=== PATIENT | male | born 1950 | race Caucasian/White ===

== ENCOUNTER 2016-02-22 03:46 | Inpatient (IN) | payer OTHER ==
[~2016-02-22] VITALS: Ht 190.5 cm; Wt 107.5 kg
[~2016-02-22 03:46] MED LIST: ADVAIR HFA120 INHALA IH; ALDACTONE25 MG PO; AMIODARONE HCL200 MG PO; AMMONIUM LACTA224 GM TP; ANCEF,KEFZOL1 GM IM; BUMETANIDE1 MG PO; CALCIUM CARB1 TABLET PO; CARDIZEM CD120 M1 PO; CARVEDILOL6.25 MG PO; COUMADIN1 MG PO; COUMADIN10 MG PO; CYCLOGYL 140 DROP/2 LEFT EYE; Chronulac,Cephulac,E PO; DAILY VALUE1 EACH PO; DIGITEK250 MC2 PO; DIGOXIN125 MCG PO; DIGOXIN250 MCG PO; DOXAZOSIN MESYLA1 MG PO; DUONEB 2.5-0.5 M3 ML AEROSOL; ERGOCALCIF50000 UNIT PO; FLONASE16 G1 BOTH NARES; FLUNISOLIDE25 ML BOTH NARES; FOLIC ACID1 MG PO; FUROSEMIDE40 MG PO; HYDROCODON-ACE1 EAC7 PO; HYDROXYZINE PAM25 MG PO; JANTOVEN4 MG PO; KLOR-CON M1010 MEQ PO; KLOR-CON M2020 MEQ PO; LASIX100 MG/10 ML IV; LASIX40 MG PO; LIPITOR20 MG PO; LISINOPRIL2.5 MG PO; LO-DOSE ASPIRIN81 M1 PO; LOPRESSOR25 MG PO; LOPRESSOR50 MG PO; LOSARTAN POTASS25 MG PO; LOVENOX60 MG/0.6 SC; Lasix PO; MAG-OXIDE400 MG PO; MYDRIACYL15 ML LEFT EYE; OMEPRAZOLE20 MG PO; OXYCODONE HCL5 MG PO; PANTOPRAZOLE SO40 MG PO; PERCOCET 5/31 TABLET PO; PHENYLEPHRINE HC LEFT EYE; PRAZOSIN HCL1 MG PO; PREDNISONE20 MG PO; PROAIR RESPICL90 MCG IH; PROTONIX40 MG PO; PROVENTIL HFA6.7 GM IH; Protonix PO; SALINE FLUSH 5 M5 ML IV; SERTRALINE HCL50 MG PO; SPIRIVA1 INHALATI IH; SYMBICORT60 INHALAT IH; THERAGRAN1 TABLET PO; TYLENOL REGULA325 MG PO; VANCOMYCIN1.25 GM/25 IV; VITAMIN D-32000 UNI2 PO; WARFARIN SODIUM5 MG PO; XIFAXAN550 MG GT; ZESTRIL5 MG PO; Zestril,Prinivil PO; oxyCODONE PO
[2016-02-22 04:22] LABS: HEMATOCRIT 33.1 % (38.0-50.0); MCH 27.5 PG (29.0-34.0); MCHC 31.1 G/DL (30.0-36.0); MCV 88.3 FL (86-99); MEAN PLAT.VOLUME 9.5 uM^3 (9.0-12.4); PLATELET COUNT 196 K/uL (156-360); RBC DIS.WIDTH-CV 18.7 % (11.8-14.6); RBC DIS.WIDTH-SD 57.1 % (39-53); RED BLOOD COUNT 3.75 M/uL (4.00-5.50); WHITE BLOOD COUNT 8.3 K/uL (4.1-10.2)
[2016-02-22 04:24] LABS: EOSINOPHIL (%) 0.7 % (0-5); EOSINOPHIL COUNT 0.1 K/uL (0-0.3); IMMATURE GRANULOCYTE (%) 0.4 % (0.0-0.7); IMMATURE GRANULOCYTE COUNT 0.3 K/uL; LYMPHOCYTE COUNT 0.9 K/uL (1.0-2.8); MONOCYTE (%) 7.6 % (3-12); MONOCYTE COUNT 0.6 K/uL (0-0.8); NEUTROPHIL (%) 80.6 % (45-76); NEUTROPHIL COUNT 6.7 K/uL (1.8-6.4)
[2016-02-22 04:32] LABS: INTER. NORMALIZED RATIO 1.3; PROTHROMBIN TIME 13.1 (9.2-11.2); PTT 29.4 (25-32)
[2016-02-22 04:33] LABS: CHLORIDE 96 mEq/L (99-109); POTASSIUM 4.2 mEq/L (3.7-5.4); SODIUM 140 mEq/L (136-147)
[2016-02-22 04:35] LABS: GLUCOSE 98 mg/dL (70-99)
[2016-02-22 04:36] LABS: ANION GAP 11 MEQ/L (2-14)
[2016-02-22 04:37] LABS: TOTAL BILIRUBIN 1.8 mg/dL (0.0-1.0)
[2016-02-22 04:39] LABS: ALKALINE PHOSPHATASE 292 IU/L (3-129); GFR ESTIMATE (CALCULATED) > 59 mL/min/
[2016-02-22 04:40] LABS: UREA NITROGEN (BUN) 11 mg/dL (9-23)
[2016-02-22 04:44] LABS: TROP-I INTERPRETATION NEGATIVE; TROPONIN-I 0.02 ng/mL (0.0-0.30)
[2016-02-22] MEDS ORDERED: MAGNESIUM400 M1 PO (04:50)
[2016-02-22] MEDS ORDERED: MULTIVITAMIN1 EAC2 PO (04:51)
[2016-02-22 10:59] LABS: TROP-I INTERPRETATION NEGATIVE; TROPONIN-I 0.02 ng/mL (0.0-0.30)
[2016-02-22 16:00] VITALS: BP 110/71
[2016-02-22 16:09] VITALS: BP 110/71
[2016-02-22 17:17] LABS: TROP-I INTERPRETATION NEGATIVE; TROPONIN-I 0.02 ng/mL (0.0-0.30)
[2016-02-22 19:15] VITALS: BP 100/58
[2016-02-22 23:50] VITALS: BP 115/72
[2016-02-23 04:30] VITALS: BP 112/63
[2016-02-23 07:08] LABS: HEMATOCRIT 31.8 % (38.0-50.0); MCH 27.8 PG (29.0-34.0); MCHC 31.1 G/DL (30.0-36.0); MCV 89.3 FL (86-99); MEAN PLAT.VOLUME 10.2 uM^3 (9.0-12.4); PLATELET COUNT 168 K/uL (156-360); RBC DIS.WIDTH-CV 19.2 % (11.8-14.6); RBC DIS.WIDTH-SD 60.1 % (39-53); RED BLOOD COUNT 3.56 M/uL (4.00-5.50); WHITE BLOOD COUNT 7.5 K/uL (4.1-10.2)
[2016-02-23 07:47] LABS: ALKALINE PHOSPHATASE 258 IU/L (3-129); ANION GAP 10 MEQ/L (2-14); CHLORIDE 91 MEQ/L (99-109); GFR ESTIMATE (CALCULATED) > 59 mL/min/; GLUCOSE 128 mg/dL (70-99); POTASSIUM 3.9 MEQ/L (3.7-5.4); SAMPLE HEMOLYSIS CHECK 0; SAMPLE ICTERIC CHECK 0; SAMPLE LIPEMIA CHECK 0; SODIUM 141 MEQ/L (136-147); TOTAL BILIRUBIN 1.7 MG/DL (0.0-1.0); UREA NITROGEN (BUN) 12 mg/dL (9-23)
[2016-02-23 09:13] VITALS: BP 103/60
[2016-02-23 11:54] VITALS: BP 110/65
[2016-02-23 16:44] VITALS: BP 106/64
[2016-02-23 19:18] VITALS: BP 111/60
[2016-02-23 23:09] VITALS: BP 110/64
[2016-02-24 03:18] VITALS: BP 113/65
[2016-02-24 07:15] VITALS: BP 108/68
[2016-02-24 11:00] VITALS: BP 105/62
[2016-02-24 11:30] VITALS: BP 105/70
[2016-02-24 15:34] VITALS: BP 95/53
[2016-02-24 20:10] VITALS: BP 105/57
[2016-02-25 00:10] VITALS: BP 106/72
[2016-02-25 04:06] VITALS: BP 100/68
[2016-02-25 07:56] VITALS: BP 110/62
[2016-02-25 09:11] LABS: HEMATOCRIT 33.2 % (38.0-50.0); MCH 27.7 PG (29.0-34.0); MCHC 30.4 G/DL (30.0-36.0); MCV 91.2 FL (86-99); MEAN PLAT.VOLUME 9.9 uM^3 (9.0-12.4); RBC DIS.WIDTH-CV 19.1 % (11.8-14.6); RBC DIS.WIDTH-SD 62.3 % (39-53); RED BLOOD COUNT 3.64 M/uL (4.00-5.50)
[2016-02-25 09:12] LABS: PLATELET COUNT 232 K/uL (156-360); WHITE BLOOD COUNT 3.8 K/uL (4.1-10.2)
[2016-02-25 09:30] LABS: ALKALINE PHOSPHATASE 246 IU/L (3-129); ANION GAP ND MEQ/L (2-14); CHLORIDE 86 MEQ/L (99-109); GFR ESTIMATE (CALCULATED) > 59 mL/min/; POTASSIUM 4.4 MEQ/L (3.7-5.4); SAMPLE HEMOLYSIS CHECK 0; SAMPLE ICTERIC CHECK 0; SAMPLE LIPEMIA CHECK 0; SODIUM 135 MEQ/L (136-147); UREA NITROGEN (BUN) 16 mg/dL (9-23)
[2016-02-25 09:32] LABS: CARBON DIOXIDE (BICARBONATE) > 40.0 MEQ/L (20-31); GLUCOSE 94 mg/dL (70-99)
[2016-02-25 11:32] VITALS: BP 100/66
[2016-02-25 15:39] VITALS: BP 100/58
[2016-02-25 19:15] VITALS: BP 93/59
[2016-02-26 00:10] VITALS: BP 106/57
[2016-02-26 04:00] VITALS: BP 98/53
[2016-02-26 06:47] LABS: HEMATOCRIT 32.1 % (38.0-50.0); MCH 27.8 PG (29.0-34.0); MCHC 30.5 G/DL (30.0-36.0); MCV 90.9 FL (86-99); MEAN PLAT.VOLUME 10.3 uM^3 (9.0-12.4); PLATELET COUNT 232 K/uL (156-360); RBC DIS.WIDTH-CV 19.3 % (11.8-14.6); RBC DIS.WIDTH-SD 62.8 % (39-53); RED BLOOD COUNT 3.53 M/uL (4.00-5.50); WHITE BLOOD COUNT 3.8 K/uL (4.1-10.2)
[2016-02-26 07:00] LABS: EOSINOPHIL (%) 4.5 % (0-5); EOSINOPHIL COUNT 0.2 K/uL (0-0.3); IMMATURE GRANULOCYTE (%) 0.5 % (0.0-0.7); MONOCYTE (%) 11.2 % (3-12); MONOCYTE COUNT 0.4 K/uL (0-0.8); NEUTROPHIL (%) 56.4 % (45-76); NEUTROPHIL COUNT 2.1 K/uL (1.8-6.4)
[2016-02-26 07:42] LABS: ANION GAP ND MEQ/L (2-14); CHLORIDE 89 MEQ/L (99-109); GFR ESTIMATE (CALCULATED) > 59 mL/min/; GLUCOSE 86 mg/dL (70-99); POTASSIUM 4.6 MEQ/L (3.7-5.4); SAMPLE HEMOLYSIS CHECK 0; SAMPLE ICTERIC CHECK 0; SAMPLE LIPEMIA CHECK 0; SODIUM 138 MEQ/L (136-147); UREA NITROGEN (BUN) 16 mg/dL (9-23)
[2016-02-26 07:52] LABS: CARBON DIOXIDE (BICARBONATE) > 40.0 MEQ/L (20-31)
[2016-02-26 08:44] VITALS: BP 101/63
[2016-02-26] MEDS ORDERED: XARELTO20 MG PO (12:09)
[2016-02-26] MEDS ORDERED: PRAVASTATIN SOD40 MG PO (12:09)
[2016-02-26] MEDS ORDERED: CARDIZEM CD120 MG PO (12:09)
[2016-02-26] MEDS ORDERED: SPIRONOLACTONE25 MG PO (12:09)
[2016-02-26] MEDS ORDERED: VENTOLIN HFA18 GM IH ×2 (12:09→13:18)
[2016-02-26] MEDS ORDERED: SPIRIVA RESPIMAT4 GM IH (12:09)
[2016-02-26] MEDS ORDERED: LIDOCAINE700 MG TD (12:09)
[2016-02-26] MEDS ORDERED: ADVAIR HFA120 INHALA IH (12:09)
[2016-02-26] MEDS ORDERED: FLONASE16 G1 BOTH NARES (12:09)
[2016-02-26] MEDS ORDERED: FUROSEMIDE40 MG PO (12:09)
[2016-02-26] MEDS ORDERED: TRAMADOL HCL50 MG PO (12:09)
[2016-02-26] MEDS ORDERED: SYMBICORT60 INHALAT IH (13:18)
[2016-02-26] MEDS ORDERED: ERGOCALCIF50000 UNIT PO (13:18)
[2016-02-26] MEDS ORDERED: MAGNESIUM400 M1 PO (13:19)
== END 2016-02-26 15:54 | disposition home or self-care (01) | DRG 291 ==
LOC: EME → EDBD 03:46 → EME 03:46 → 4EAST 05:50 → EDOF 05:50 → 4EAST 15:47
PROVIDERS: Emergency Medicine; Family Medicine; Hospitalist
DX: I13.0 Hypertensive heart and chronic kidney disease with heart failure and stage 1 through stage 4 chronic kidney disease, or unspecified chronic kidney disease (principal); I50.33 Acute on chronic diastolic (congestive) heart failure; J96.10 Chronic respiratory failure, unspecified whether with hypoxia or hypercapnia; J98.11 Atelectasis; I44.7 Left bundle-branch block, unspecified; J44.9 Chronic obstructive pulmonary disease, unspecified; I27.2 Other secondary pulmonary hypertension; F10.20 Alcohol dependence, uncomplicated; E78.5 Hyperlipidemia, unspecified; E66.9 Obesity, unspecified; M71.22 Synovial cyst of popliteal space [Baker], left knee; Z68.33 Body mass index [BMI] 33.0-33.9, adult; M19.90 Unspecified osteoarthritis, unspecified site; I48.91 Unspecified atrial fibrillation; Z99.81 Dependence on supplemental oxygen; K21.9 Gastro-esophageal reflux disease without esophagitis; N18.9 Chronic kidney disease, unspecified; G47.33 Obstructive sleep apnea (adult) (pediatric); I34.0 Nonrheumatic mitral (valve) insufficiency
CPT/HCPCS: 71010; 71020; 80048; 80053; 83880; 84443; 84484; 85025; 85027; 85610; 85730; 93005; 93970; 94010; 94640; 94640 76; 94799; 99202; 99281; 99285; J1650; J1940; J3010

== ENCOUNTER 2016-02-27 10:43 | Observation (INO) | payer OTHER ==
[~2016-02-27] VITALS: Ht 190.5 cm; Wt 109.8 kg
[~2016-02-27 10:43] MED LIST changes: +CARDIZEM CD120 MG PO; +LIDOCAINE700 MG TD; +MAGNESIUM400 M1 PO; +MULTIVITAMIN1 EAC2 PO; +PRAVASTATIN SOD40 MG PO; +SPIRIVA RESPIMAT4 GM IH; +SPIRONOLACTONE25 MG PO; +TRAMADOL HCL50 MG PO; +VENTOLIN HFA18 GM IH; +XARELTO20 MG PO
[2016-02-27 11:15] LABS: CHLORIDE 92 mEq/L (99-109); POTASSIUM 4.2 mEq/L (3.7-5.4); SODIUM 135 mEq/L (136-147)
[2016-02-27 11:16] LABS: GLUCOSE 94 mg/dL (70-99)
[2016-02-27 11:18] LABS: ANION GAP 7 MEQ/L (2-14)
[2016-02-27 11:20] LABS: GFR ESTIMATE (CALCULATED) > 59 mL/min/
[2016-02-27 11:21] LABS: UREA NITROGEN (BUN) 15 mg/dL (9-23)
[2016-02-27 11:27] LABS: TROP-I INTERPRETATION NEGATIVE; TROPONIN-I 0.03 ng/mL (0.0-0.30)
[2016-02-27 11:39] LABS: INTER. NORMALIZED RATIO 1.2
[2016-02-27 11:40] LABS: MEAN PLAT.VOLUME 11.7 uM^3 (9.0-12.4); PLATELET COUNT 214 K/uL (156-360)
[2016-02-27 13:55] LABS: HEMATOLOGY COMMENT 1 SMEAR COMPATIBLE
[2016-02-27 13:56] LABS: HEMATOCRIT 33.8 % (38.0-50.0); MCH 28.2 PG (29.0-34.0); MCHC 32.2 G/DL (30.0-36.0); MCV 87.6 FL (86-99); RBC DIS.WIDTH-SD 62.4 % (39-53); RED BLOOD COUNT 3.86 M/uL (4.00-5.50); WHITE BLOOD COUNT 4.2 K/uL (4.1-10.2)
[2016-02-27 17:25] VITALS: BP 132/82
[2016-02-27 18:03] LABS: D-DIMER ELISA 0.69 mg/L FEU (< 0.57)
[2016-02-27 18:10] LABS: TROP-I INTERPRETATION NEGATIVE; TROPONIN-I 0.03 ng/mL (0.0-0.30)
[2016-02-27 20:28] VITALS: BP 121/73
[2016-02-27 23:42] VITALS: BP 105/56
[2016-02-27 23:48] LABS: TROP-I INTERPRETATION NEGATIVE; TROPONIN-I 0.03 ng/mL (0.0-0.30)
[2016-02-28 04:13] VITALS: BP 122/69
[2016-02-28 06:10] LABS: HEMATOCRIT 34.3 % (38.0-50.0); INTER. NORMALIZED RATIO 1.3; MCH 28.1 PG (29.0-34.0); MCHC 31.5 G/DL (30.0-36.0); MCV 89.1 FL (86-99); MEAN PLAT.VOLUME 11.2 uM^3 (9.0-12.4); PLATELET COUNT 246 K/uL (156-360); PROTHROMBIN TIME 13.4 (9.2-11.2); RBC DIS.WIDTH-CV 19.9 % (11.8-14.6); RBC DIS.WIDTH-SD 63.6 % (39-53); RED BLOOD COUNT 3.85 M/uL (4.00-5.50)
[2016-02-28 06:11] LABS: WHITE BLOOD COUNT 5.6 K/uL (4.1-10.2)
[2016-02-28 06:27] LABS: ANION GAP 6 MEQ/L (2-14); CHLORIDE 92 MEQ/L (99-109); GFR ESTIMATE (CALCULATED) > 59 mL/min/; GLUCOSE 91 mg/dL (70-99); POTASSIUM 5.1 MEQ/L (3.7-5.4); SAMPLE HEMOLYSIS CHECK 2; SAMPLE ICTERIC CHECK 0; SAMPLE LIPEMIA CHECK 0; SODIUM 136 MEQ/L (136-147); UREA NITROGEN (BUN) 20 mg/dL (9-23)
[2016-02-28 07:32] VITALS: BP 92/51
[2016-02-28 09:08] LABS: POTASSIUM 4.3 MEQ/L (3.7-5.4)
[2016-02-28] MEDS ORDERED: XARELTO20 MG PO (09:43)
[2016-02-28] MEDS ORDERED: PRAVACHOL40 MG PO (09:44)
[2016-02-28] MEDS ORDERED: VENTOLIN HFA18 GM IH (09:44)
[2016-02-28] MEDS ORDERED: SPIRIVA RESPIMAT4 GM IH (09:44)
[2016-02-28] MEDS ORDERED: CARDIZEM CD,CA120 MG PO (09:45)
[2016-02-28] MEDS ORDERED: ALDACTONE25 MG PO (09:45)
[2016-02-28] MEDS ORDERED: TRAMADOL HCL50 MG PO (09:46)
[2016-02-28] MEDS ORDERED: FUROSEMIDE40 MG PO (09:46)
[2016-02-28] MEDS ORDERED: ADVAIR HFA120 INHALA IH (09:47)
[2016-02-28] MEDS ORDERED: FLONASE16 G1 BOTH NARES ×2 (09:47→09:48)
[2016-02-28] MEDS ORDERED: LIDODERM 5% P1 PATCH TD (09:48)
[2016-02-28 12:22] VITALS: BP 122/74
[2016-02-28 15:41] VITALS: BP 115/56
== END 2016-02-28 18:36 | disposition home or self-care (01) ==
LOC: EME 10:43 → EDOF 16:30 → 5WEST 16:30
PROVIDERS: Emergency Medicine; Internal Medicine; Physician Assistant
DX: R07.89 Other chest pain (principal); I10 Essential (primary) hypertension; I48.1 Persistent atrial fibrillation; E78.5 Hyperlipidemia, unspecified; G47.33 Obstructive sleep apnea (adult) (pediatric); Z79.01 Long term (current) use of anticoagulants; I44.7 Left bundle-branch block, unspecified; E66.9 Obesity, unspecified; Z68.30 Body mass index [BMI] 30.0-30.9, adult; Z98.84 Bariatric surgery status; J44.9 Chronic obstructive pulmonary disease, unspecified; I27.81 Cor pulmonale (chronic); Z99.81 Dependence on supplemental oxygen; K21.9 Gastro-esophageal reflux disease without esophagitis; I31.1 Chronic constrictive pericarditis; G89.4 Chronic pain syndrome; R26.9 Unspecified abnormalities of gait and mobility; M25.562 Pain in left knee; Z87.891 Personal history of nicotine dependence; Z87.898 Personal history of other specified conditions
CPT/HCPCS: 71010; 71020; 71275; 80048; 81003; 83880; 84484; 84999; 85027; 85379; 85610; 93005; 99281; 99284; G0378; J1940

== ENCOUNTER 2016-03-11 11:00 | Inpatient (IN) | payer OTHER ==
[~2016-03-11] VITALS: Ht 190.5 cm; Wt 116.8 kg
[~2016-03-11 11:00] MED LIST changes: +CARDIZEM CD,CA120 MG PO; +LIDODERM 5% P1 PATCH TD; +PRAVACHOL40 MG PO
[2016-03-11 11:51] LABS: ADD MIUA? NO; BILIRUBIN NEGATIVE; BLOOD NEGATIVE; COLOR YELLOW ((YELLOW)); GLUCOSE (STRIP) NEGATIVE; KETONES NEGATIVE; LEUKOCYTES NEGATIVE; NITRITE NEGATIVE; PROTEIN (STRIP) NEGATIVE; UCUL ADDED? NO
[2016-03-11 12:56] LABS: HEMATOCRIT 29.7 % (38.0-50.0); MCH 28.9 PG (29.0-34.0); MCV 93.4 FL (86-99); MEAN PLAT.VOLUME 9.2 uM^3 (9.0-12.4); PLATELET COUNT 236 K/uL (156-360); RBC DIS.WIDTH-CV 21.1 % (11.8-14.6); RBC DIS.WIDTH-SD 68.8 % (39-53); RED BLOOD COUNT 3.18 M/uL (4.00-5.50); WHITE BLOOD COUNT 3.3 K/uL (4.1-10.2)
[2016-03-11 13:02] LABS: CHLORIDE 97 mEq/L (99-109); POTASSIUM 4.9 mEq/L (3.7-5.4); SODIUM 138 mEq/L (136-147)
[2016-03-11 13:05] LABS: GLUCOSE 87 mg/dL (70-99)
[2016-03-11 13:06] LABS: ANION GAP 11 MEQ/L (2-14)
[2016-03-11 13:07] LABS: TOTAL BILIRUBIN 0.6 mg/dL (0.0-1.0)
[2016-03-11 13:08] LABS: ALKALINE PHOSPHATASE 254 IU/L (3-129); GFR ESTIMATE (CALCULATED) > 59 mL/min/
[2016-03-11 13:09] LABS: UREA NITROGEN (BUN) 8 mg/dL (9-23)
[2016-03-11 13:14] LABS: TROP-I INTERPRETATION NEGATIVE; TROPONIN-I 0.02 ng/mL (0.0-0.30)
[2016-03-11 15:15] LABS: INTER. NORMALIZED RATIO 1.1; PROTHROMBIN TIME 11.4 (9.2-11.2); PTT 28.7 (25-32)
[2016-03-11 18:30] VITALS: BP 121/69
[2016-03-11 20:46] LABS: HEMATOCRIT 30.3 % (38.0-50.0); MCV 92.4 FL (86-99)
[2016-03-11 21:10] LABS: TROP-I INTERPRETATION NEGATIVE; TROPONIN-I 0.03 ng/mL (0.0-0.30)
[2016-03-11 22:46] LABS: AMYLASE 40 IU/L (1-118)
[2016-03-11 23:19] VITALS: BP 123/65
[2016-03-11 23:40] LABS: MCH 28.6 PG (29.0-34.0); MCHC 30.7 G/DL (30.0-36.0); MEAN PLAT.VOLUME 9.8 uM^3 (9.0-12.4); PLATELET COUNT 217 K/uL (156-360); RBC DIS.WIDTH-SD 70.9 % (39-53); RED BLOOD COUNT 3.25 M/uL (4.00-5.50); WHITE BLOOD COUNT 4.7 K/uL (4.1-10.2)
[2016-03-11 23:58] LABS: IRON 19 MCG/DL (35-150); SERUM ETHYL ALCOHOL < 10 mg/dL
[2016-03-12 07:16] LABS: INTER. NORMALIZED RATIO 1.2; PROTHROMBIN TIME 11.8 (9.2-11.2); PTT 28.4 (25-32)
[2016-03-12 07:31] LABS: ALKALINE PHOSPHATASE 231 IU/L (3-129); ANION GAP 4 MEQ/L (2-14); CHLORIDE 98 MEQ/L (99-109); DIRECT BILIRUBIN 0.4 mg/dL (0.0-0.3); GFR ESTIMATE (CALCULATED) > 59 mL/min/; GLUCOSE 80 mg/dL (70-99); POTASSIUM 4.6 MEQ/L (3.7-5.4); SAMPLE HEMOLYSIS CHECK 0; SAMPLE ICTERIC CHECK 0; SAMPLE LIPEMIA CHECK 0; SODIUM 138 MEQ/L (136-147); TOTAL BILIRUBIN 1.1 MG/DL (0.0-1.0); UREA NITROGEN (BUN) 9 mg/dL (9-23)
[2016-03-12 07:57] VITALS: BP 130/80
[2016-03-12 10:34] LABS: HEMATOCRIT 29.9 % (38.0-50.0); MCH 28.8 PG (29.0-34.0); MCHC 30.4 G/DL (30.0-36.0); MCV 94.6 FL (86-99); PLATELET COUNT 214 K/uL (156-360); RBC DIS.WIDTH-CV 21.2 % (11.8-14.6); RBC DIS.WIDTH-SD 73.2 % (39-53); RED BLOOD COUNT 3.16 M/uL (4.00-5.50); WHITE BLOOD COUNT 4.6 K/uL (4.1-10.2)
[2016-03-12 16:05] VITALS: BP 126/73
[2016-03-12 23:23] LABS: HEMATOCRIT 29.5 % (38.0-50.0); MCH 28.8 PG (29.0-34.0); MCHC 30.8 G/DL (30.0-36.0); MCV 93.4 FL (86-99); MEAN PLAT.VOLUME 8.9 uM^3 (9.0-12.4); PLATELET COUNT 201 K/uL (156-360); RBC DIS.WIDTH-CV 20.5 % (11.8-14.6); RBC DIS.WIDTH-SD 67.5 % (39-53); RED BLOOD COUNT 3.16 M/uL (4.00-5.50); WHITE BLOOD COUNT 4.3 K/uL (4.1-10.2)
[2016-03-13 06:26] LABS: MCH 29.4 PG (29.0-34.0); MCHC 31.4 G/DL (30.0-36.0); MCV 93.5 FL (86-99); MEAN PLAT.VOLUME 9.9 uM^3 (9.0-12.4); PLATELET COUNT 190 K/uL (156-360); RBC DIS.WIDTH-CV 20.7 % (11.8-14.6); RBC DIS.WIDTH-SD 70.7 % (39-53); WHITE BLOOD COUNT 3.9 K/uL (4.1-10.2)
[2016-03-13 06:50] LABS: ANION GAP 6 MEQ/L (2-14); CHLORIDE 98 MEQ/L (99-109); GFR ESTIMATE (CALCULATED) > 59 mL/min/; GLUCOSE 84 mg/dL (70-99); POTASSIUM 3.9 MEQ/L (3.7-5.4); SAMPLE HEMOLYSIS CHECK 0; SAMPLE ICTERIC CHECK 0; SAMPLE LIPEMIA CHECK 0; SODIUM 139 MEQ/L (136-147); UREA NITROGEN (BUN) 9 mg/dL (9-23)
[2016-03-13 17:14] VITALS: BP 114/68
[2016-03-14 00:22] VITALS: BP 108/64
[2016-03-14 07:09] LABS: HEMATOCRIT 31.6 % (38.0-50.0); MCHC 30.7 G/DL (30.0-36.0); MCV 94.3 FL (86-99); MEAN PLAT.VOLUME 9.8 uM^3 (9.0-12.4); PLATELET COUNT 191 K/uL (156-360); RBC DIS.WIDTH-CV 20.4 % (11.8-14.6); RBC DIS.WIDTH-SD 70.3 % (39-53); RED BLOOD COUNT 3.35 M/uL (4.00-5.50); WHITE BLOOD COUNT 4.1 K/uL (4.1-10.2)
[2016-03-14 07:36] LABS: ANION GAP 4 MEQ/L (2-14); CHLORIDE 94 MEQ/L (99-109); GFR ESTIMATE (CALCULATED) > 59 mL/min/; GLUCOSE 84 mg/dL (70-99); SAMPLE HEMOLYSIS CHECK 0; SAMPLE ICTERIC CHECK 0; SAMPLE LIPEMIA CHECK 0; SODIUM 136 MEQ/L (136-147); UREA NITROGEN (BUN) 6 mg/dL (9-23)
[2016-03-14 09:00] VITALS: BP 128/57
[2016-03-14 18:31] VITALS: BP 114/70
[2016-03-14 20:30] VITALS: BP 113/67
[2016-03-14 23:15] VITALS: BP 101/63
[2016-03-15 04:10] VITALS: BP 101/58
[2016-03-15 07:38] VITALS: BP 110/57
[2016-03-15 16:20] VITALS: BP 116/57
[2016-03-15 23:13] VITALS: BP 105/67
[2016-03-16 06:45] LABS: HEMATOCRIT 28.6 % (38.0-50.0); MCH 28.5 PG (29.0-34.0); MCHC 29.7 G/DL (30.0-36.0); MEAN PLAT.VOLUME 10.1 uM^3 (9.0-12.4); PLATELET COUNT 158 K/uL (156-360); RBC DIS.WIDTH-CV 19.8 % (11.8-14.6); RBC DIS.WIDTH-SD 69.1 % (39-53); RED BLOOD COUNT 2.98 M/uL (4.00-5.50); WHITE BLOOD COUNT 4.2 K/uL (4.1-10.2)
[2016-03-16 07:13] LABS: ANION GAP 6 MEQ/L (2-14); CHLORIDE 95 MEQ/L (99-109); GFR ESTIMATE (CALCULATED) > 59 mL/min/; GLUCOSE 81 mg/dL (70-99); MAGNESIUM 1.3 mg/dl (1.3-2.7); POTASSIUM 3.8 MEQ/L (3.7-5.4); SAMPLE HEMOLYSIS CHECK 0; SAMPLE ICTERIC CHECK 0; SAMPLE LIPEMIA CHECK 0; SODIUM 139 MEQ/L (136-147); UREA NITROGEN (BUN) 8 mg/dL (9-23)
[2016-03-16 07:33] VITALS: BP 110/61
[2016-03-16] MEDS ORDERED: BENTYL20 MG PO (14:13)
[2016-03-16] MEDS ORDERED: LOPRESSOR25 MG PO (14:13)
[2016-03-16] MEDS ORDERED: PANTOPRAZOLE SO40 MG PO (14:13)
[2016-03-16] MEDS ORDERED: FUROSEMIDE40 MG PO (14:13)
[2016-03-16] MEDS ORDERED: PRAVASTATIN SOD40 MG PO (14:13)
[2016-03-16] MEDS ORDERED: SPIRIVA RESPIMAT4 GM IH (14:13)
[2016-03-16] MEDS ORDERED: ADVAIR HFA120 INHALA IH (14:13)
[2016-03-16] MEDS ORDERED: SPIRONOLACTONE25 MG PO (14:13)
[2016-03-16] MEDS ORDERED: CARDIZEM CD120 MG PO (14:13)
[2016-03-19 08:33] LABS: INTERNAL CONTROL VALID? YES
== END 2016-03-16 17:18 | disposition home or self-care (01) | DRG 378 ==
LOC: EME → EDBD 11:00 → EME 11:00 → EDOF 14:06 → 5EAST 14:20
PROVIDERS: Emergency Medicine; Hospitalist; Internal Medicine; Specialist
DX: K92.2 Gastrointestinal hemorrhage, unspecified (principal); I50.32 Chronic diastolic (congestive) heart failure; I42.6 Alcoholic cardiomyopathy; J44.9 Chronic obstructive pulmonary disease, unspecified; I11.0 Hypertensive heart disease with heart failure; I27.2 Other secondary pulmonary hypertension; F10.10 Alcohol abuse, uncomplicated; K70.30 Alcoholic cirrhosis of liver without ascites; E78.5 Hyperlipidemia, unspecified; I08.1 Rheumatic disorders of both mitral and tricuspid valves; E66.9 Obesity, unspecified; K31.7 Polyp of stomach and duodenum; Z68.32 Body mass index [BMI] 32.0-32.9, adult; R07.89 Other chest pain; I48.2 Chronic atrial fibrillation; G47.33 Obstructive sleep apnea (adult) (pediatric); I25.10 Atherosclerotic heart disease of native coronary artery without angina pectoris; Z91.19 Patient's noncompliance with other medical treatment and regimen; Z99.81 Dependence on supplemental oxygen; K64.8 Other hemorrhoids; K63.5 Polyp of colon; K57.30 Diverticulosis of large intestine without perforation or abscess without bleeding; K55.20 Angiodysplasia of colon without hemorrhage; D63.8 Anemia in other chronic diseases classified elsewhere
CPT/HCPCS: 71020; 74177; 76705; 80048; 80053; 80076; 81003; 82150; 82272; 82607; 82746; 83540; 83735; 84484; 85014; 85018; 85027; 85610; 85730; 86850; 86900; 86901; 86920; 87177; 87493; 87506; 88305; 88342 TC; 93005; 94640; 94640 76; 94760; 94799; 99202; 99281; 99285; C9113; G0480; J2250; J2270; J3010; J7030

== ENCOUNTER 2016-05-10 04:12 | Inpatient (IN) | payer OTHER ==
[~2016-05-10] VITALS: Ht 190.5 cm; Wt 116.9 kg
[~2016-05-10 04:12] MED LIST changes: +BENTYL20 MG PO
[2016-05-10 04:50] LABS: HEMATOCRIT 31.6 % (38.0-50.0); MCH 27.1 PG (29.0-34.0); MCHC 30.7 G/DL (30.0-36.0); MCV 88.3 FL (86-99); PLATELET COUNT 190 K/uL (156-360); RBC DIS.WIDTH-CV 19.4 % (11.8-14.6); RBC DIS.WIDTH-SD 61.6 % (39-53); RED BLOOD COUNT 3.58 M/uL (4.00-5.50); WHITE BLOOD COUNT 4.2 K/uL (4.1-10.2)
[2016-05-10 04:56] LABS: CHLORIDE 94 mEq/L (99-109); POTASSIUM 3.7 mEq/L (3.7-5.4); SODIUM 138 mEq/L (136-147)
[2016-05-10 04:58] LABS: GLUCOSE 90 mg/dL (70-99)
[2016-05-10 04:59] LABS: ANION GAP 12 MEQ/L (2-14)
[2016-05-10 05:01] LABS: GFR ESTIMATE (CALCULATED) > 59 mL/min/
[2016-05-10 05:02] LABS: UREA NITROGEN (BUN) 8 mg/dL (9-23)
[2016-05-10 05:10] LABS: TROP-I INTERPRETATION NEGATIVE; TROPONIN-I 0.04 ng/mL (0.0-0.30)
[2016-05-10 05:39] LABS: ADD MIUA? NO; BILIRUBIN NEGATIVE; BLOOD NEGATIVE; COLOR COLORLESS ((YELLOW)); GLUCOSE (STRIP) NEGATIVE; KETONES NEGATIVE; LEUKOCYTES NEGATIVE; NITRITE NEGATIVE; PROTEIN (STRIP) NEGATIVE; SPECIFIC GRAVITY 1.004 (1.000-1.030); UCUL ADDED? NO; UROBILINOGEN 0.2 MG/DL (0.2-1.0)
[2016-05-10 06:13] LABS: MONOCYTE (%) 11.3 % (3-12)
[2016-05-10 06:14] LABS: EOSINOPHIL (%) 2.1 % (0-5); EOSINOPHIL COUNT 0.1 K/uL (0-0.3); IMMATURE GRANULOCYTE (%) 0.7 % (0.0-0.7); LYMPHOCYTE COUNT 0.6 K/uL (1.0-2.8); MONOCYTE COUNT 0.5 K/uL (0-0.8)
[2016-05-10 06:19] LABS: INTER. NORMALIZED RATIO 1.4; PTT 34.8 (25-32)
[2016-05-10] MEDS ORDERED: KLOR-CON M2020 MEQ PO (11:25)
[2016-05-10] MEDS ORDERED: XARELTO20 MG PO (11:25)
[2016-05-10] MEDS ORDERED: VENTOLIN HFA18 GM IH (11:26)
[2016-05-10 15:00] VITALS: BP 130/88
[2016-05-10 19:34] VITALS: BP 130/77
[2016-05-10 23:43] VITALS: BP 116/69
[2016-05-11 04:11] VITALS: BP 109/72
[2016-05-11 05:45] LABS: MCH 27.3 PG (29.0-34.0); MCHC 30.7 G/DL (30.0-36.0); MCV 88.9 FL (86-99); MEAN PLAT.VOLUME 9.8 uM^3 (9.0-12.4); PLATELET COUNT 187 K/uL (156-360); RBC DIS.WIDTH-CV 19.9 % (11.8-14.6); RBC DIS.WIDTH-SD 63.1 % (39-53); RED BLOOD COUNT 3.15 M/uL (4.00-5.50)
[2016-05-11 05:46] LABS: WHITE BLOOD COUNT 6.9 K/uL (4.1-10.2)
[2016-05-11 05:47] LABS: METH RESISTANT S AUREUS PCR POSITIVE (NEGATIVE)
[2016-05-11 05:50] LABS: PROBE CHECK PASS
[2016-05-11 06:06] LABS: ANION GAP 8 MEQ/L (2-14); CHLORIDE 94 MEQ/L (99-109); GFR ESTIMATE (CALCULATED) > 59 mL/min/; GLUCOSE 96 mg/dL (70-99); POTASSIUM 4.6 MEQ/L (3.7-5.4); SAMPLE HEMOLYSIS CHECK 0; SAMPLE ICTERIC CHECK 0; SAMPLE LIPEMIA CHECK 0; SODIUM 137 MEQ/L (136-147); UREA NITROGEN (BUN) 17 mg/dL (9-23)
[2016-05-11 08:24] VITALS: BP 112/53
[2016-05-11 15:35] VITALS: BP 105/60
[2016-05-11 18:07] LABS: IRON 40 MCG/DL (35-150)
[2016-05-11 18:22] LABS: FERRITIN 33 NG/ML (22-322)
[2016-05-12 04:00] VITALS: BP 111/82
[2016-05-12 07:04] LABS: HEMATOCRIT 29.2 % (38.0-50.0); MCH 27.4 PG (29.0-34.0); MCHC 29.8 G/DL (30.0-36.0); MCV 92.1 FL (86-99); MEAN PLAT.VOLUME 10.1 uM^3 (9.0-12.4); PLATELET COUNT 178 K/uL (156-360); RBC DIS.WIDTH-CV 20.3 % (11.8-14.6); RBC DIS.WIDTH-SD 66.2 % (39-53); RED BLOOD COUNT 3.17 M/uL (4.00-5.50); WHITE BLOOD COUNT 7.5 K/uL (4.1-10.2)
[2016-05-12 07:27] LABS: ANION GAP 7 MEQ/L (2-14); CHLORIDE 93 MEQ/L (99-109); EOSINOPHIL (%) 2.5 % (0-5); EOSINOPHIL COUNT 0.2 K/uL (0-0.3); GFR ESTIMATE (CALCULATED) > 59 mL/min/; GLUCOSE 85 mg/dL (70-99); IMMATURE GRANULOCYTE (%) 0.5 % (0.0-0.7); INSTRUMENT ABS NEUTROPHIL CT 5.4 K/uL; MONOCYTE (%) 10.6 % (3-12); MONOCYTE COUNT 0.8 K/uL (0-0.8); NEUTROPHIL (%) 72.9 % (45-76); NEUTROPHIL COUNT 5.4 K/uL (1.8-6.4); POTASSIUM 4.4 MEQ/L (3.7-5.4); SAMPLE HEMOLYSIS CHECK 0; SAMPLE ICTERIC CHECK 0; SAMPLE LIPEMIA CHECK 0; SODIUM 137 MEQ/L (136-147)
[2016-05-12 07:30] LABS: UREA NITROGEN (BUN) 26 mg/dL (9-23)
[2016-05-12 07:53] VITALS: BP 120/71
[2016-05-12 15:13] VITALS: BP 113/72
[2016-05-13 00:21] VITALS: BP 135/63
[2016-05-13 06:23] LABS: HEMATOCRIT 29.6 % (38.0-50.0); MCH 27.2 PG (29.0-34.0); MCHC 29.4 G/DL (30.0-36.0); MCV 92.5 FL (86-99); MEAN PLAT.VOLUME 10.5 uM^3 (9.0-12.4); PLATELET COUNT 180 K/uL (156-360); RBC DIS.WIDTH-CV 20.2 % (11.8-14.6); RBC DIS.WIDTH-SD 66.4 % (39-53)
[2016-05-13 06:40] LABS: ANION GAP 4 MEQ/L (2-14); CHLORIDE 94 MEQ/L (99-109); GFR ESTIMATE (CALCULATED) > 59 mL/min/; GLUCOSE 84 mg/dL (70-99); MAGNESIUM 1.6 mg/dl (1.3-2.7); POTASSIUM 4.5 MEQ/L (3.7-5.4); SAMPLE HEMOLYSIS CHECK 0; SAMPLE ICTERIC CHECK 0; SAMPLE LIPEMIA CHECK 0; SODIUM 137 MEQ/L (136-147); UREA NITROGEN (BUN) 24 mg/dL (9-23)
[2016-05-13 06:43] LABS: WHITE BLOOD COUNT 5.2 K/uL (4.1-10.2)
[2016-05-13 07:36] VITALS: BP 116/62
[2016-05-13 10:21] LABS: C DIFF TOXIN NEGATIVE (NEGATIVE)
[2016-05-13 10:22] LABS: PROBE CHECK PASS; SPECIMEN PROCESSING CONTROL PASS
[2016-05-13 16:24] VITALS: BP 104/58
[2016-05-13 20:38] VITALS: BP 106/64
[2016-05-14 00:08] VITALS: BP 118/61
[2016-05-14 04:08] VITALS: BP 120/67
[2016-05-14 06:46] LABS: HEMATOCRIT 30.8 % (38.0-50.0); MCH 27.5 PG (29.0-34.0); MCHC 29.9 G/DL (30.0-36.0); MCV 92.2 FL (86-99); MEAN PLAT.VOLUME 10.3 uM^3 (9.0-12.4); PLATELET COUNT 188 K/uL (156-360); RBC DIS.WIDTH-CV 20.2 % (11.8-14.6); RBC DIS.WIDTH-SD 66.8 % (39-53); RED BLOOD COUNT 3.34 M/uL (4.00-5.50); WHITE BLOOD COUNT 4.3 K/uL (4.1-10.2)
[2016-05-14 07:21] LABS: ANION GAP 5 MEQ/L (2-14); CHLORIDE 95 MEQ/L (99-109); GFR ESTIMATE (CALCULATED) > 59 mL/min/; GLUCOSE 84 mg/dL (70-99); POTASSIUM 4.6 MEQ/L (3.7-5.4); SAMPLE HEMOLYSIS CHECK 0; SAMPLE ICTERIC CHECK 0; SAMPLE LIPEMIA CHECK 0; SODIUM 138 MEQ/L (136-147); UREA NITROGEN (BUN) 17 mg/dL (9-23)
[2016-05-14 11:30] VITALS: BP 117/64
[2016-05-14] MEDS ORDERED: PRAVASTATIN SOD40 MG PO (12:44)
[2016-05-14] MEDS ORDERED: FERROUS SULFAT325 MG PO (12:44)
[2016-05-14] MEDS ORDERED: LOPRESSOR25 MG PO (12:45)
[2016-05-14] MEDS ORDERED: SPIRONOLACTONE25 MG PO (12:45)
[2016-05-14] MEDS ORDERED: ACIDOPHILUS LA1 EACH PO (12:47)
[2016-05-14] MEDS ORDERED: FLORASTOR250 MG PO (12:47)
[2016-05-14 17:23] VITALS: BP 125/69
[2016-05-14 20:58] VITALS: BP 116/66
[2016-05-15] VITALS (8 sets, daily range): BP systolic 100–124; BP diastolic 60–70
[2016-05-15] MEDS ORDERED: PRAVASTATIN SOD40 MG PO (11:18)
[2016-05-15] MEDS ORDERED: FLORASTOR250 MG PO (11:18)
[2016-05-15] MEDS ORDERED: LOPRESSOR25 MG PO (11:18)
[2016-05-15] MEDS ORDERED: ACIDOPHILUS LA1 EACH PO (11:18)
[2016-05-15] MEDS ORDERED: FERROUS SULFAT325 MG PO (11:18)
[2016-05-15] MEDS ORDERED: XARELTO20 MG PO (11:22)
[2016-05-16 08:00] VITALS: BP 100/68
[2016-05-16] MEDS ORDERED: CYANOCOBALAM1000 MCG PO (13:47)
[2016-05-16 15:27] VITALS: BP 102/64
[2016-05-16 20:39] LABS: AP Bone Isoenzyme 18 % (28-66); AP Intestine Isoenzyme 0 % (1-24); AP Liver Isoenzyme 82 % (25-69); AP Macrohepatic Isoenzyme 0 % (<=0); AP Placental Isoenzyme 0 % (<=0); Alkaline Phosphatase, Total 276 U/L (40-115)
== END 2016-05-16 17:48 | disposition home health service (06) | DRG 292 ==
LOC: EME → EDBD 04:12 → 3EAST 09:19 → EDOF 09:19 → 5SOUTH 09:19 → 3EAST 14:45 → 5SOUTH 05-13 18:55
PROVIDERS: Emergency Medicine; Hospitalist; Internal Medicine; Nurse Practitioner Family; Specialist; Student in an Organized Health Care Education/Training Program
DX: I50.23 Acute on chronic systolic (congestive) heart failure (principal); I48.1 Persistent atrial fibrillation; J96.11 Chronic respiratory failure with hypoxia; F33.9 Major depressive disorder, recurrent, unspecified; J90 Pleural effusion, not elsewhere classified; J98.11 Atelectasis; L03.116 Cellulitis of left lower limb; L03.115 Cellulitis of right lower limb; I42.9 Cardiomyopathy, unspecified; A09 Infectious gastroenteritis and colitis, unspecified; I10 Essential (primary) hypertension; G47.33 Obstructive sleep apnea (adult) (pediatric); J43.9 Emphysema, unspecified; I27.2 Other secondary pulmonary hypertension; E78.5 Hyperlipidemia, unspecified; M19.90 Unspecified osteoarthritis, unspecified site; D64.9 Anemia, unspecified; E53.8 Deficiency of other specified B group vitamins; H10.31 Unspecified acute conjunctivitis, right eye; I27.81 Cor pulmonale (chronic); I87.2 Venous insufficiency (chronic) (peripheral); I44.7 Left bundle-branch block, unspecified; I36.1 Nonrheumatic tricuspid (valve) insufficiency; K74.60 Unspecified cirrhosis of liver; I34.0 Nonrheumatic mitral (valve) insufficiency; R15.9 Full incontinence of feces; K42.9 Umbilical hernia without obstruction or gangrene; E66.9 Obesity, unspecified; K44.9 Diaphragmatic hernia without obstruction or gangrene; Z60.2 Problems related to living alone; Z68.32 Body mass index [BMI] 32.0-32.9, adult; Z99.81 Dependence on supplemental oxygen; Z98.84 Bariatric surgery status; Z87.891 Personal history of nicotine dependence; Z79.01 Long term (current) use of anticoagulants; Z87.11 Personal history of peptic ulcer disease; K59.00 Constipation, unspecified
CPT/HCPCS: 70450; 71010; 71020; 72125; 74020; 74176; 74177; 80048; 81003; 82607; 82728; 83090 90; 83540; 83605; 83735; 83880; 83921 90; 84075 90; 84080 90; 84466; 84484; 85025; 85027; 85610; 85730; 87040; 87177; 87493; 87506; 87641; 93005; 93970; 94010; 94640 76; 94644; 94760; 94799; 99202; 99281; 99285; J0690; J0696; J1170; J1940; J2270; J2930; J3420; J7050